=== PATIENT | male | born 1980 | race African-American/Black ===

== ENCOUNTER 2016-11-20 20:45 | Emergency (ER) | payer SELFPAY ==
[~2016-11-20] VITALS: Ht 190.5 cm; Wt 105.0 kg
[2016-11-20] MEDS ORDERED: CLONIDINE 0.2MG TABLET PO ONE (22:00)
[2016-11-20 22:51] LABS: BASOPHILS % 1.5 % (0.0-2.0); EOSINOPHILS % 2.8 % (0.0-5.0); HEMATOCRIT. 41.7 % (42.0-52.0); HEMOGLOBIN. 13.6 g/dL (14.0-18.0); LYMPHOCYTES % 42.1 % (20.0-50.0); MEAN CORPUSCULAR HEMOGLOBIN 21.7 pg (28.0-32.0); MEAN CORPUSCULAR VOLUME 66.4 fL (80.0-94.0); MEAN PLATELET VOLUME 9.3 fl (7.4-10.4); MONOCYTES % 6.4 % (2.0-8.0); NEUTROPHILS % 47.2 % (40.0-76.0); PLATELET 139 x1000/uL (130-400); RED BLOOD CELL COUNT 6.28 mill/uL (4.7-6.1); RED CELL DISTRIBUTION WIDTH 14.8 % (11.6-14.6)
[2016-11-20 23:05] LABS: CARBON DIOXIDE 26 mEq/L (21-32); CHLORIDE 101 mEq/L (98-107); ETHANOL BLOOD < 10 mg/dL
[2016-11-20 23:08] LABS: PLATELET ESTIMATE NORMAL
[2016-11-20 23:09] LABS: CREATINE KINASE 168 IU/L (39-308); TROPONIN I < 0.02 ng/mL (0.00-0.04)
[2016-11-21 01:18] VITALS: BP 159/104
== END 2016-11-21 01:52 | disposition home or self-care (01) ==
LOC: ER 20:45
DX: I10 Essential (primary) hypertension (principal); R51 Headache; F17.200 Nicotine dependence, unspecified, uncomplicated
CPT/HCPCS: 36415; 70450; 71010; 80053; 82550; 83880; 84443; 84484; 85025; 93005; 99285; 99406; G0482; Z7610